=== PATIENT | female | born 1995 | race Caucasian/White ===

== ENCOUNTER 2018-04-03 03:55 | Emergency (ER) | payer OTHER ==
--- NOTE | 2018-04-03 03:56 | ER Report ---
History and Physical Time Seen By MD: 03:56 HPI/ROS CHIEF COMPLAINT: Left ear pain HISTORY OF PRESENT ILLNESS: 22-year-old female presents a the ER complaining of left ear pain 08/03, aggravated after being at a bar tonight listening to loud music. She states ear pain started several days ago was very mild. Tonight. It's throbbing. She's taken ibuprofen at home without relief. She is unable to sleep. She is concerned about perforation. She's had viral cold symptoms for the last 3-4 days. She notes no fever or chills. She notes only clear rhinitis. She has no difficulty swallowing. She denies bad teeth. She denies TMJ disorder. Allergies: Coded Allergies: No Known Drug Allergies (Unverified , 04/03/18) Home Meds Reported Medications [] No Conflict Check 04/03/18 Constitutional Vital Sign - Last 24 Hours 04/03/18 04/03/18 04/03/18 04/03/18 03:58 04:00 04:10 04:25 Temp 97.6 Pulse 111 96 94 Resp 14 B/P (MAP) 134/82 (99) 134/82 Pulse Ox 98 97 98 O2 Delivery Room Air Physical Exam General Appearance: The patient is alert, has no immediate need for airway protection and no current signs of toxicity.. Vital signs stable, afebrile, mild tachycardia, moderate distress HEENT: Pupils equal and round no injection. TMs normal, left external auditory canal partially obstructed with cerumen. A small portion of the central TM is noted without erythema, bulging or discoloration, and left TMJ is mildly tender. Respiratory: Chest is non tender, lungs are clear to auscultation. Cardiac: regular rate and rhythm Gastrointestinal: Abdomen is soft and non tender, no masses, bowel sounds normal. Musculoskeletal: Neck: Neck is supple and non tender. No lymphadenopathy Extremities have full range of motion and are non tender. Skin: No rashes or lesions. DIFFERENTIAL DIAGNOSIS: After history and physical exam differential diagnosis was considered for otitis media otitis externa, eustachian tube dysfunction, barotrauma, cerumen impaction, TMJ disorder, tooth abscess, sinusitis, lymphadenopathy, tonsillitis Medical Decision Making ED Course/Re-evaluation ED Course Patient was admitted to an examination room. H&P was done. The differential diagnoses was considered. On clinical examination. Patient has a normal- appearing oropharynx. There is no sinus tenderness on percussion. Her left TMJ is tender. Examination of the left hepatic membrane shows a normal- appearing TM. There is partial obscuration of the TM secondary to cerumen. Patient be treated for pain with Ina. She is advised to continue ibuprofen 60 mg 3 times daily. Warm compresses may be of benefit. Patient's discharged home with a Lortab prepack. Patient advised to follow-up with primary care if unimproved in 3-5 days. Decision to Disposition Date: April 03, 2018 Decision to Disposition Time: 04:10 Depart Departure Latest Vital Signs Vital Signs Date Time Temp Pulse Resp B/P (MAP) Pulse Ox O2 Delivery O2 Flow Rate FiO2 04/03/18 04:25 94 98 04/03/18 04:00 97.6 14 134/82 Room Air Impression: Primary Impression: Otalgia, left ear Condition: Improved Disposition: HOME OR SELF-CARE Referrals: JESU MELENDEZ JR, MD Patient Instructions: Barotrauma (ED) Additional Instructions: Continue ibuprofen 200 mg 3 tablets 3 times a day with food Follow-up with ENT if unimproved SAMSON LAYTON DO April 03, 2018 03:56
[2018-04-03] MEDS ORDERED: prenatal (03:59)
[2018-04-03 04:00] VITALS: BP 134/82
[2018-04-03] MEDS ORDERED: ACET/HYDROC 5/325MG TH ER ONLY 2 TAB/BOTTLE PO ONE (04:15)
== END 2018-04-03 04:33 | disposition home or self-care (01) ==
LOC: ER 04:18
DX: H92.02 Otalgia, left ear (principal)
CPT/HCPCS: 99282